=== PATIENT | female | born 1990 | race Caucasian/White ===

== ENCOUNTER 2017-02-17 06:16 | Day surgery (SDC) | payer BC ==
[2017-02-11 16:37] LABS: HEMATOCRIT 38.3 % (36.0-48.0); HEMOGLOBIN 13.1 g/dL (12.0-16.0)
[2017-02-11 16:45] LABS: PARTIAL THROMBO TIME 28.1 SEC (22.5-37.2)
--- NOTE | ~2017-02-17 | OP ---
Record Of Operation [facility] [address] [place]. [address] NAME: GABRIELLE RAMOS : 89 STATUS : [facility]#: [id number] AGE: 27 ADM/REG DATE : 02/17/17 MR#: [id number] REPORT SERV DATE: 02/19/17 DICTATED BY: AYAN PAEZ DATE: 02/19/17 REPORT STATUS : Draft TRANSCRIBED BY: IVELISSE DATE: 02/19/17 DATE OF PROCEDURE: 02/17/2017 PREOPERATIVE DIAGNOSES: 1. Chronic rhinosinusitis. 2. Left jon bullosa. 3. Left nasal polyposis. 4. Inferior turbinate hypertrophy and adenoid hypertrophy. PROCEDURE: 1. Image-guided bilateral maxillary antrostomy with tissue removal. 2. Left jon bullosa resection. 3. Left nasal polypectomy. 4. Right sphenoidotomy with balloon. 5. Bilateral inferior turbinate reduction. 6. Adenoidectomy. ANESTHESIA: General endotracheal anesthesia was utilized. FINDINGS: Mucoperiosteal thickening of both maxillary sinuses, left jon bullosa, nasal polyps in the middle meatus and the nasal cavity on the left, turbinate hypertrophy, and adenoid hypertrophy with adenoid tissue extending into the posterior nasal cavity. ESTIMATED BLOOD LOSS: 15 mL. COMPLICATIONS: None. INDICATIONS FOR PROCEDURE: This is a 27-year-old female with chronic rhinosinusitis and difficulty breathing through her nose. She is seen in clinic, and despite maximum medical therapy, she had symptoms and findings on CT including sinusitis in both maxillary sinuses, right sphenoid sinus, jon bullosa on the left-hand side, and turbinate hypertrophy. She has indications for the procedure as described. She described the risks and benefits of the procedure. She voiced understanding and signed the consent. The consent was placed on chart at the time of operation. DESCRIPTION OF PROCEDURE: The patient is wheeled to the OR suite and placed on the OR table in the supine position. She was intubated and placed under general endotracheal anesthesia without difficulty. She had been sprayed in her nasal cavity 30 minutes prior to the procedure and would be sprayed again just after intubation. I would place 4% cocaine-soaked cottonoids in both sides of nasal cavity for approximately 5 minutes, and while this was going on, I would scrub and gown. She would be prepped and draped in a standard fashion for procedures as described with endoscopic 0-degree and 30-degree guidance. The table was turned 90 degrees. The image guidance system was placed on her forehead and she was registered to the [email or web address] system without difficulty to close error and she was subsequently prepped and draped in standard fashion for the procedure. I would begin on the left hand side. I removed the cottonoids from the nasal cavity. I would inject along the Record Of Operation [facility] [id number] [facility] [place]. [address] NAME: GABRIELLE RAMOS : 89 STATUS : [facility] PAT#: [id number] AGE: 27 ADM/REG DATE : 02/17/17 MR#: [id number] REPORT SERV DATE: 02/19/17 DICTATED BY: AYAN PAEZ DATE: 02/19/17 REPORT STATUS : Draft TRANSCRIBED BY: IVELISSE DATE: 02/19/17 middle turbinate. There were polyps coming out of the middle meatus and into the nasal cavity on this side. These would also be injected with 1 mL of local, which is 1% lidocaine with 1:100,000 epinephrine, so I would inject the middle turbinate and also the uncinate. Using a microdebrider, I would remove the polyps from the nasal cavity and into the middle meatus in this side. She had a jon bullosa on the left hand side and I had injected the middle turbinate. I would take out the lateral portion of the jon bullosa within the middle meatus using the microdebrider up to the leading edge of the middle turbinate. This was also smashed as well and then posteriorly also. Once this was accomplished and the polyps were removed from this area as well, I would elevate the uncinate. I came through this using a backbiter and completed my uncinectomy using a microdebrider. I identified the maxillary sinus os using a sinus seeker, and using a backbiter and straight Rah-Cut, I widened the antrostomy, also completed this using the microdebrider. I would see mucosal thickening in the maxillary sinus. I irrigated out this copiously using sterile saline and suctioned this. Also, I visualized the nasopharynx going backward and saw that she had adenoid tissue coming into her nasal cavity posteriorly with approximately 30% occlusion of choanae with adenoid tissue. So, using a suction Bovie at this point set on 30, I would remove the adenoid actually transnasally using a 0-degree endoscope and suction Bovie. I went at this from the left and the right hand side and I was pleased with adenoidectomy. She had also been having eustachian tube dysfunction and had retracted tympanic membranes, so this must help with this as well. Now, I turned my attention to the right-hand side. There were no polyps on the right, but would inject along the middle turbinate and the uncinate. I would lateralize the middle turbinate and elevate the uncinate using a sinus seeker. I came through this using a backbiter and completed my uncinectomy using combination of backbiter and microdebrider. I identified the maxillary sinus os using a sinus seeker and then widened this using a combination of backbiter, microdebrider, and straight Rah-Cut, so I would have a wide antrostomy. I would irrigate the maxillary sinus. There was mucosal thickening within the sinus. I irrigated this thoroughly and suctioned this thoroughly. I then turned my attention to the sphenoid sinus on the right-hand side. I would use the sphenoid sinus introducer from the [employer] image guidance balloon system. Once identified the os, I placed this within. I saw this on the image guidance system within the sinus itself, so I inflated the balloon to 6 atmospheres and then would deflate and remove this as though within the sinus. I irrigated this out and suctioned this thoroughly. There was no blood loss doing this. So, once that was accomplished, I completed any further adenoidectomy on this side also. I would turn my attention to the inferior turbinates. Each inferior turbinate was injected with 1 mL of local and I would start on the patient's right-hand side using the Coblator inferior turbinate blade. I would make three passes within the submucosal portion of the inferior turbinate and then lateralize this using a butter knife. I then did the same on the left side with similar findings and results, so I had widely patent the nasal cavity. There was no further bleeding. I would decide to place large Propel stents within the middle meatus on each side on the left hand side to keep the middle turbinate from scarring to the lateral wall and then on the right hand side as well for similar reasons. So, at this portion, I suctioned out the nasopharynx. There was no further bleeding. The procedure was complete. She was returned to the care of anesthesiologist and turned 90 degrees. Subsequently, she was awoken, extubated, and stably transferred to the recovery area. The patient tolerated the procedure well. Record Of Operation [address] [place]. [address] NAME: GABRIELLE RAMOS : 89 STATUS : [facility]#: [id number] AGE: 27 ADM/REG DATE : 02/17/17 MR#: [id number] REPORT SERV DATE: 02/19/17 DICTATED BY: AYAN PAEZ DATE: 02/19/17 REPORT STATUS : Draft TRANSCRIBED BY: IVELISSE DATE: 02/19/17 VEE/IVELISSE Ayan Paez M.D. / [id number] CC: Uri Pryor M.D.
[~2017-02-17 06:16] MED LIST: ALBUTEROL INH; B121000P IM; FLONASE NAS; FORTAMET1000 MG PO; MAXIMUM D3 PO; SYN1 PO; TRULICITY0.75 MG/0. SQ
== END 2017-02-17 17:42 | disposition home or self-care (01) ==
LOC: SDC 06:16
PROVIDERS: Otolaryngology
PROC: 099R4ZZ Drainage of Left Maxillary Sinus, Percutaneous Endoscopic Approach (ICD-10-PCS; 2017-02-17)
PROC: 099Q4ZZ Drainage of Right Maxillary Sinus, Percutaneous Endoscopic Approach (ICD-10-PCS; 2017-02-17)
PROC: 09BK4ZZ Excision of Nasal Mucosa and Soft Tissue, Percutaneous Endoscopic Approach (ICD-10-PCS; 2017-02-17)
PROC: 099W4ZZ Drainage of Right Sphenoid Sinus, Percutaneous Endoscopic Approach (ICD-10-PCS; 2017-02-17)
PROC: 09BL8ZZ Excision of Nasal Turbinate, Via Natural or Artificial Opening Endoscopic (ICD-10-PCS; 2017-02-17)
PROC: 0CBQ0ZZ Excision of Adenoids, Open Approach (ICD-10-PCS; 2017-02-17)
PROC: 8E09XBZ Computer Assisted Procedure of Head and Neck Region (ICD-10-PCS; principal; 2017-02-17 07:15)
DX: D14.0 Benign neoplasm of middle ear, nasal cavity and accessory sinuses (principal); J01.80 Other acute sinusitis; J32.8 Other chronic sinusitis; J35.2 Hypertrophy of adenoids; Z80.9 Family history of malignant neoplasm, unspecified; Z82.49 Family history of ischemic heart disease and other diseases of the circulatory system; Z83.3 Family history of diabetes mellitus; J45.909 Unspecified asthma, uncomplicated; M79.7 Fibromyalgia; D64.9 Anemia, unspecified; F41.9 Anxiety disorder, unspecified; F32.9 Major depressive disorder, single episode, unspecified; E03.9 Hypothyroidism, unspecified; E11.9 Type 2 diabetes mellitus without complications; E88.81 Metabolic syndrome and other insulin resistance; E66.9 Obesity, unspecified; Z68.32 Body mass index [BMI] 32.0-32.9, adult; Z88.1 Allergy status to other antibiotic agents; Z79.51 Long term (current) use of inhaled steroids; Z79.84 Long term (current) use of oral hypoglycemic drugs; Z79.899 Other long term (current) drug therapy; Z98.890 Other specified postprocedural states
CPT/HCPCS: 82962; 84703; 85014; 85018; 85730; 88305; A9270-GY; C2625; J2250; J2270; J2405; J2550; J2710; J3010